=== PATIENT | female | born 1990 | race Caucasian/White ===

== ENCOUNTER → 2020-11-27 | Day surgery (SDC) | payer OTHER ==
[~2020-11-27] MED LIST: AMILORIDE HCL5 M1 PO; FEOSOL325 MG PO; LAMICTAL150 MG PO; LITHIUM CARBON600 MG PO; PRAVASTATIN SOD10 M1 PO; PROPRANOLOL HCL10 MG PO; PROZAC40 MG PO; SINGULAIR10 MG PO; VENTOLIN HFA IN18 GM INH; VITAMIN D3 PO
[2020-11-27 09:32] LABS: HCG (URINE) SCREEN NEGATIVE (NEGATIVE)
[2020-11-27 10:20] LABS: BUN/CREAT RATIO (CALC) 7.3 RATIO; CREATININE 1.24 mg/dL (0.51-0.95)
== END | disposition home or self-care (01) ==
LOC: FAS 08:46
PROVIDERS: Anesthesiology
DX: N61.0 Mastitis without abscess (principal); N64.1 Fat necrosis of breast; F31.9 Bipolar disorder, unspecified; J45.909 Unspecified asthma, uncomplicated; F41.9 Anxiety disorder, unspecified; E78.5 Hyperlipidemia, unspecified; G43.909 Migraine, unspecified, not intractable, without status migrainosus; E66.9 Obesity, unspecified; Z68.41 Body mass index [BMI] 40.0-44.9, adult; Z79.899 Other long term (current) drug therapy; Z91.048 Other nonmedicinal substance allergy status
CPT/HCPCS: 36415; 80048; 84703; 93005; J2250; J2704; J3010; J7120